=== PATIENT | female | born 1990 | race Caucasian/White ===

== ENCOUNTER → 2020-02-07 | Outpatient (CLI) | payer OTHER ==
[~2020-02-07] MED LIST: ACYC200 PO; CEPH500 PO; Cipro500 MG PO; Flagyl500 MG PO; LEVSOD75 PO; ONDA8ODT MM; OXYACE5T PO; PROM25S PR; Percocet 5-3251 EACH PO; RXONDA4ODT MM; Zofran Odt4 MG SL
[2020-02-09 14:50] LABS: CORONAVIRUS (COVID19) CSH-NRL Positive (Negative)
== END | disposition home or self-care (01) ==
LOC: LAB 13:20
PROVIDERS: Family Medicine
DX: U07.1 COVID-19 (principal)
CPT/HCPCS: U0003